=== PATIENT | female | born 1935 | race African-American/Black ===

== ENCOUNTER 2016-09-27 04:19 | Observation (INO) | payer MEDICARE ==
[~2016-09-27] VITALS: Ht 160 cm; Wt 60.5 kg
[~2016-09-27 04:19] MED LIST: ACCOLATE10 MG PO; ADLT ASA LOW81 MG PO; AMOXICILLIN500 MG OR; APRESOLINE50 MG PO; CATAPRES0.1 MG PO; CHILD ASA LS81 MG PO; CYPROHEPTAD4 MG OR; DRONABINOL5 MG PO; FERROUS SULF325 M2 PO; HYDRALAZINE100 MG PO; HYDROCHLOROT25 MG PO; LISINOPRIL20 MG PO; LOVENOX 4040 MG/0.4 SC; MECLIZINE25 MG PO; MEGACE OR; NORVASC5 M1 PO; PERCOCET 5/325M1 TAB PO; SERTRALINE50 MG PO; TENORMIN PO; TRAMADOL HCL100 MG PO; XANAX0.25 MG PO; ZOLOFT50 MG PO; [UNRECOGNIZED DRUG - CODE] OR
[2016-09-27 04:57] LABS: HEMATOCRIT 34.5 % (37.0-47.0); HEMOGLOBIN 10.8 g/dl (12.0-16.0); IMMATURE GRANULOCYTES 0.2 % (0.0-1.0); MEAN CELL VOLUME 82.5 fL CALC (80.0-100.0); MEAN CORPUSCULAR HGB 25.8 pG CALC (26.0-32.0); MEAN CORPUSCULAR HGB CONC 31.3 g/L CALC (32.0-36.0); NEUT# 3.07 thou/uL (2.00-7.15); RED BLOOD COUNT 4.18 mill/uL (4.20-5.60); RED CELL DISTRI WIDTH 13.6 % (11.5-15.5); URINE BILIRUBIN - DIPSTICK NEGATIVE (NEGATIVE); URINE BLOOD DIPSTICK NEGATIVE (NEGATIVE); URINE CLARITY CLEAR; URINE COLOR YELLOW; URINE GLUCOSE - DIPSTICK NEGATIVE (NEGATIVE); URINE KETONE NEGATIVE (NEGATIVE); URINE NITRITE - DIPSTICK NEGATIVE (Negative); URINE PROTEIN - DIPSTICK NEGATIVE (NEG-TRACE); URINE SPECIFIC GRAVITY 1.025; URINE UROBILINOGEN - DIPSTICK 0.2 E.U./dL (0.2)
[2016-09-27 04:58] LABS: URINE LEUK ESTERASE MODERATE (NEGATIVE)
[2016-09-27 05:07] LABS: URINE SQUAMOUS EPITHELIAL CELL FEW EPI/hpf (0-FEW)
[2016-09-27 05:11] LABS: ALBUMIN 4.1 g/dL (3.2-5.0); BILIRUBIN, TOTAL 0.3 mg/dL (0.0-1.4); CALCIUM 10.9 mg/dL (8.4-10.2); CREATININE 1.3 mg/dL (0.5-1.0); TOTAL PROTEIN 7.8 g/dL (6.3-8.2)
[2016-09-27 05:20] LABS: POTASSIUM 5.3 mmol/l (3.5-5.1)
[2016-09-27 07:50] VITALS: BP 154/65
[2016-09-27] MEDS ORDERED: HYDRALAZINE25 MG PO (11:26)
[2016-09-27] MEDS ORDERED: LISINOP/HCTZ1 TA2 PO (11:27)
[2016-09-27 15:32] VITALS: BP 105/54
[2016-09-27 19:30] VITALS: BP 89/68
[2016-09-28] VITALS: BP 115/53
[2016-09-28 04:43] LABS: CALCIUM 9.8 mg/dL (8.4-10.2); CREATININE 1.3 mg/dL (0.5-1.0); POTASSIUM 4.6 mmol/l (3.5-5.1)
[2016-09-28 05:10] VITALS: BP 146/67
[2016-09-28 05:31] LABS: HEMATOCRIT 30.6 % (37.0-47.0); HEMOGLOBIN 9.5 g/dl (12.0-16.0); IMMATURE GRANULOCYTES 0.3 % (0.0-1.0); MEAN CELL VOLUME 82.9 fL CALC (80.0-100.0); MEAN CORPUSCULAR HGB 25.7 pG CALC (26.0-32.0); NEUT# 3.74 thou/uL (2.00-7.15); RED BLOOD COUNT 3.69 mill/uL (4.20-5.60); RED CELL DISTRI WIDTH 14.1 % (11.5-15.5)
[2016-09-28 09:48] VITALS: BP 140/54
[2016-09-28] MEDS ORDERED: TENORMIN50 MG PO (10:13)
== END 2016-09-28 12:25 | disposition home or self-care (01) ==
LOC: ENPENDDIS → ED 04:19 → ED-I 05:44 → ED 05:47 → MS2 05:48
PROVIDERS: Emergency Medicine; ADMIT Internal Medicine; ATTEND Internal Medicine
DX: R07.89 Other chest pain (principal); N17.9 Acute kidney failure, unspecified; I10 Essential (primary) hypertension; E87.5 Hyperkalemia; F32.9 Major depressive disorder, single episode, unspecified

== ENCOUNTER 2017-09-18 07:58 | Emergency (ER) | payer MEDICARE ==
[~2017-09-18] VITALS: Ht 30.5 cm; Wt 60.0 kg
[~2017-09-18 07:58] MED LIST changes: +HYDRALAZINE25 MG PO; +LISINOP/HCTZ1 TA2 PO; +TENORMIN50 MG PO
[2017-09-18 10:08] LABS: HEMATOCRIT 35.2 % (37.0-47.0); HEMOGLOBIN 10.9 g/dl (12.0-16.0); IMMATURE GRANULOCYTES 0.2 % (0.0-1.0); MEAN CELL VOLUME 85.9 fL CALC (80.0-100.0); MEAN CORPUSCULAR HGB 26.6 pG CALC (26.0-32.0); NEUT# 4.28 thou/uL (2.00-7.15); RED BLOOD COUNT 4.1 mill/uL (4.20-5.60); RED CELL DISTRI WIDTH 14.2 % (11.5-15.5)
[2017-09-18 10:21] VITALS: BP 160/80
[2017-09-18 10:26] LABS: ANION GAP 15 (6-22 (CALC)); BUN 22 mg/dL (8-23); BUN/CREATININE RATIO 25 (12-20 (CALC)); CARBON DIOXIDE 24 mmol/l (22-30); CHLORIDE 107 mmol/l (95-108); CREATININE 0.9 mg/dL (0.5-1.0); GFR 60 ML/MIN (>=60 (CALC)); GFR FOR AFR.AMER. > 60 ML/MIN (>=60 (CALC)); SODIUM 142 mmol/l (137-146)
== END 2017-09-18 10:51 | disposition short-term general hospital (02) ==
LOC: ED 07:58
PROVIDERS: Family Medicine
DX: S06.5X0A Traumatic subdural hemorrhage without loss of consciousness, initial encounter (principal); I10 Essential (primary) hypertension; W01.0XXA Fall on same level from slipping, tripping and stumbling without subsequent striking against object, initial encounter; Y93.K1 Activity, walking an animal; Y92.410 Unspecified street and highway as the place of occurrence of the external cause
CPT/HCPCS: J1953

== ENCOUNTER 2018-03-09 07:29 | Emergency (ER) | payer MEDICARE ==
[~2018-03-09] VITALS: Ht 160 cm; Wt 66.0 kg
[2018-03-09] MEDS ORDERED: VOLTAREN1%GEL TOP (08:18)
[2018-03-09] MEDS ORDERED: ASPERCREME LIDOCA41 TOP (08:18)
[2018-03-09] MEDS ORDERED: MOTRIN400 MG PO (08:18)
[2018-03-09 09:34] VITALS: BP 168/87
== END 2018-03-09 09:42 | disposition home or self-care (01) ==
LOC: ED 07:29
DX: S46.811A Strain of other muscles, fascia and tendons at shoulder and upper arm level, right arm, initial encounter (principal); M62.838 Other muscle spasm; M54.2 Cervicalgia; M25.511 Pain in right shoulder

== ENCOUNTER → 2018-10-13 | Outpatient (REF) | payer MEDICARE ==
[~2018-10-13] MED LIST changes: +ASPERCREME LIDOCA41 TOP; +MOTRIN400 MG PO; +VOLTAREN1%GEL TOP
== END | disposition home or self-care (01) ==
LOC: MAMMO 08:15
PROVIDERS: ATTEND Internal Medicine
DX: Z12.31 Encounter for screening mammogram for malignant neoplasm of breast (principal); N95.1 Menopausal and female climacteric states

== ENCOUNTER 2020-12-31 20:40 | Emergency (ER) | payer MEDICARE ==
[~2020-12-31] VITALS: Ht 160 cm; Wt 62.3 kg
[~2020-12-31 20:40] MED LIST changes: +DONEPEZIL10 MG PO; +DRISDOL50000 UNIT PO; +NORVASC10 M1 PO
[2020-12-31 21:19] LABS: HEMATOCRIT 38.7 % (37.0-47.0); HEMOGLOBIN 11.5 g/dl (12.0-16.0); IMMATURE GRANULOCYTES 0.2 % (0.0-5.0); MEAN CELL VOLUME 82.7 fL CALC (80.0-100.0); MEAN CORPUSCULAR HGB 24.6 pG CALC (26.0-32.0); MEAN CORPUSCULAR HGB CONC 29.7 g/dL CAL (32.0-36.0); NEUT# 5.56 thou/uL (2.00-7.15); RED BLOOD COUNT 4.68 mill/uL (4.20-5.60); RED CELL DISTRI WIDTH 15.8 % (11.5-15.5)
[2020-12-31 21:32] LABS: ALBUMIN 4.1 g/dL (3.2-5.0); ALKALINE PHOSPHATASE 100 u/l (38-126); ANION GAP 11 (6-22 (CALC)); BILIRUBIN, TOTAL 0.2 mg/dL (0.0-1.4); BUN 21 mg/dL (8-23); BUN/CREATININE RATIO 25 (12-20 (CALC)); CARBON DIOXIDE 24 mmol/l (22-30); CHLORIDE 106 mmol/l (95-108); CREATININE 0.8 mg/dL (0.5-1.0); GFR > 60 ML/MIN (>=60 (CALC)); GFR FOR AFR.AMER. > 60 ML/MIN (>=60 (CALC)); SGOT/AST 30 u/l (9-36); SODIUM 137 mmol/l (137-146); TOTAL PROTEIN 7.9 g/dL (6.3-8.2)
[2020-12-31 23:44] VITALS: BP 173/78
== END 2020-12-31 23:50 | disposition home or self-care (01) ==
LOC: ED 20:40
PROVIDERS: Emergency Medicine
DX: R07.89 Other chest pain (principal); I10 Essential (primary) hypertension; W19.XXXA Unspecified fall, initial encounter

== ENCOUNTER 2021-07-31 15:40 | Emergency (ER) | payer MEDICARE ==
[~2021-07-31] VITALS: Ht 160 cm; Wt 70.0 kg
[2021-07-31 17:40] LABS: HEMATOCRIT 36.7 % (37.0-47.0); HEMOGLOBIN 11.1 g/dl (12.0-16.0); MEAN CELL VOLUME 85.3 fL CALC (80.0-100.0); MEAN CORPUSCULAR HGB 25.8 pG CALC (26.0-32.0); MEAN CORPUSCULAR HGB CONC 30.2 g/dL CAL (32.0-36.0); NEUT# 4.33 thou/uL (2.00-7.15); RED BLOOD COUNT 4.3 mill/uL (4.20-5.60); RED CELL DISTRI WIDTH 14.6 % (11.5-15.5)
[2021-07-31 18:00] LABS: ALBUMIN 3.8 g/dL (3.2-5.0); ALKALINE PHOSPHATASE 77 u/l (38-126); ANION GAP 11 (6-22 (CALC)); BILIRUBIN, TOTAL 0.4 mg/dL (0.0-1.4); BUN 27 mg/dL (8-23); BUN/CREATININE RATIO 27 (12-20 (CALC)); CARBON DIOXIDE 24 mmol/l (22-30); CHLORIDE 107 mmol/l (95-108); GFR 52 ML/MIN (>=60 (CALC)); GFR FOR AFR.AMER. > 60 ML/MIN (>=60 (CALC)); SGOT/AST 22 u/l (9-36); SODIUM 137 mmol/l (137-146); TOTAL PROTEIN 7.4 g/dL (6.3-8.2)
[2021-07-31 18:02] LABS: POTASSIUM 5.3 mmol/l (3.5-5.1)
[2021-07-31] MEDS ORDERED: SPS15 GM/601 PO (19:16)
[2021-07-31 19:26] VITALS: BP 181/81
== END 2021-07-31 19:43 | disposition home or self-care (01) ==
LOC: ED 15:40
PROVIDERS: Family Medicine
DX: E87.5 Hyperkalemia (principal); Z20.822 Contact with and (suspected) exposure to COVID-19; N18.31 Chronic kidney disease, stage 3a; I12.9 Hypertensive chronic kidney disease with stage 1 through stage 4 chronic kidney disease, or unspecified chronic kidney disease; D63.1 Anemia in chronic kidney disease; E83.52 Hypercalcemia